=== PATIENT | female | born 1950 ===

== ENCOUNTER 2022-03-26 02:01 | Inpatient (IN) | payer MEDICARE, SELFPAY ==
[2022-03-26] VITALS (77 sets, daily range): BP systolic 84–135; BP diastolic 61–107; PULSE 62–129; RESP 11–46; TEMP 36.6–36.7; O2SAT 83–95
[2022-03-26] MEDS: dilTIAZem 125 MG in Normal Saline 100 ML 10 MG IV (05:57)
--- NOTE | 2022-03-26 06:17 | W.PM.HP.N ---
Date of service: 03/26/22 Time of Service: 06:17 Assessment and Plan Assessment and plan (1) Cardiogenic shock: Status: Acute Assessment and plan: patient meets criteria for shock, i.e. hypotensive unresponsive to fluids associated w/ acute end organ failure (she has EDDIE, hepatic insufficiency and global LV dysfunction); she has required norepinephrine drip after she was given total of 4 L of fluids prior to her arrival to us. She has not required intubation but has increased oxygen requirements. She is in acute CHF w/ pleural effusions and pulmonary edema. She does not want intubated or resuscitated in the event of cardiopulmonary arrest. In fact she does not want to stay in the hospital to receive appropriate treatment even if it means that she will likely . She has a fear of financial ruin if she remains hospitalized. I had a lengthy discussion w/ her about her conditions and what interventions we can provide for her. I am recommending that we attempt to diurese her, use low dose metoprolol to control her fast HR (goal is resting HR under 90, although she may need a higher HR to maintain her C.O which is low at 1.9 to 2.0). I am recommending dobutamine drip and amiodarone drip. The low dose metoprolol and amiodarone would help keep her out of PAF which will only worsen her LV output. I am recommending DAPT w/ aspirin and Plavix (which she did receive Plavix 600 mg and ASA 324 mg) and begin heparin drip. Ultimately she needs transferred to a tertiary care center for cardiac cath however at this point she refuses any transfer and she is refusing any further iv meds. She wants to be discharged home on oral meds. She says she needs time to process all this information and needs to discuss this w/ her (whom she did speak by telephone) and to talk w/ other family and colleagues to get their opinions. However, the bottom line is she is concerned that the hospital costs will financially ruin her and her . I [place] [facility] [place] [facility] transfer center prior to her refusing any transfer. [facility] are both at capacity. I did talk w/ Dr. Bloom, route inspector [place] [facility] who agreed w/ the above plan. He also added that digoxin could be tried for her PAF and CHF although he would try amiodarone first to keep her in SR. Critical care time spent interviewing and examining the patient, reviewing studies, discussing case with patient's nurse and consulting physicians was 90 minutes outside of POCUS exam (2) Ischemic cardiomyopathy: Status: Acute Assessment and plan: as above. While I did not get adquate biplane images for Daugherty biplane EF; her CO is low at 1.9 to 2.0. She has severely dilated LV w/ diffuse hypokinesis (apex and anterolateral wall were akinetic) w/ the exception of the basilar inferoseptal wall which was somewhat better but also hypokinetic. (3) Acute systolic congestive heart failure, NYHA class 4: Status: Acute (4) Mitral regurgitation: Status: Chronic Assessment and plan: sever MR as seen on color doppler POCUS (5) Paroxysmal atrial fibrillation: Status: Acute (6) Left bundle branch block: Status: Acute (7) Metabolic acidosis: Status: Acute (8) Hyperglycemia: Status: Acute Assessment and plan: monitor blood sugars; cover w/ SSI (9) Hepatic insufficiency: Status: Acute History of Present Illness History of Present Illness Chief Complaint: dyspnea Narrative: 71 yr old female, former smoker (quit 1999 after 12 yrs x 1/2 ppd), remote hx of hyperthyroidism as child, otherwise healthy until the past week when she developed dyspnea. She says that the dyspnea was most noticeable at night and worse w/ lying down. She denies any chest pain/tightness. No associated fever, chills, cough. She thought that this was just allergies until her dyspnea got so bad that she was having PND along w/ her orthopnea at which point she presented to the ER at [facility] where she was diagnosed w/ rapid atrial fibrillation. EKG taken at 8:11 pm there demonstrated afib w/ rate of 181 w/ LBBB. She was given diltiazem 15 mg bolus x 2 doses and started on diltiazem drip which was titrated to 15 mg/hr. Repeat EKG taken at 2:00 am continued to show afib w/ LBBB but rate down to 113 bpm (after she also received lopressor 2.5 mg). Labs were remarkable for troponin I of 74 pg/mL, glucose 186, BUN 32, creatinine 0.99, protein 5.3, albumin 3.0, calcium 8.0. CBC showed no anemia Hb14, WBC 10,000, platelets 127,00. [facility] ED provider, Kassy Weiss requested transfer as they did not have staffing to manage patient with her condition and needs for diltiazem drip. While at [facility] she received a total of 3 L of iv fluids d/t hypotension while on diltiazem drip and was put on norepinephrine drip after Dr. Weiss had intially called me and I had accepted the patient. She then got another liter of fluids enroute. NE drip was weaned down to 1 mcg/kg/minute and has been shut off. I ordered stat EKG on admission and this demonstrates ST elevation across the anterior leads w/LBBB but now she is in sinus tachycardia. We are dc her diltiazem drip. Review of Systems All systems reviewed & are unremarkable except as noted in HPI and below Cardiovascular Cardiovascular: Reports as per HPI Respiratory Respiratory: Reports as per HPI [facility] All Active Problems (Updated 03/26/22 @ 08:52 by Byron Warren MD) Cardiogenic shock (Acute) Hepatic insufficiency (Acute) Hyperglycemia (Acute) Metabolic acidosis (Acute) Left bundle branch block (Acute) Paroxysmal atrial fibrillation (Acute) Mitral regurgitation (Chronic) Acute systolic congestive heart failure, NYHA class 4 (Acute) Ischemic cardiomyopathy (Acute) Medical History Hyperthyroidism diagnosed w/ hyperthyroidism as child and treated for about one year; no workup or treatment as an adult Social History Smoking risk assessment performed?: No Exam Narrative Exam Narrative: Alert and oriented x4 HEENT: Atraumatic normocephalic, pupils equally round reactive to light and accommodation, extraocular motion intact, TMs intact, nares moist and patent without exudate or bleeding, oropharynx noninjected without exudate, teeth in fair repair Neck: Supple, nontender, without thyromegaly or lymphadenopathy, carotid pulses strong, regular; marked JVD to angle of her jaw Lungs: bibasilar rales w/ dullness to percussion over left base Heart: regular, tachycardic w/ 2/6 systolic murmur over apex Abdomen: Nondistended, normal bowel sounds, nontender to palpation or percussion, no organomegaly, no bruits, no palpable masses Genitalia and rectal exam: Deferred Breasts: Deferred Extremities: Normal range of motion with normal strength. No peripheral cyanosis, cool feet, palpable pedal pulses, 1+pedal and pretibial edema Neurologic: Cranial nerves grossly within normal limits. Normal strength and sensation over the face trunk and extremities. Results Labs Result diagrams: 03/26/22 05:35 03/26/22 05:35 Last Vital Signs Pulse 97 H 03/26/22 06:00 Resp 26 H 03/26/22 06:00 BP 102/79 03/26/22 06:00 Pulse Ox 91 L 03/26/22 05:50
[2022-03-26 06:30] LABS: Abs Immature Grans 0.05 10^3/uL (0.0-0.06); Absolute Basophil Count 0.01 10^3/uL (0.0-0.2); Absolute Lymphocyte Count 0.72 10^3/uL (1.2-3.4); Absolute Monocyte Count 0.36 10^3/uL (0.1-0.8); Absolute Neutrophil Count 8.94 10^3/uL (1.2-6.7); Basophils % 0.1; HCT 44.8 % (36.0-46.0); HGB 14.1 g/dL (11.2-15.7); Immature Grans % 0.5; Lymphocytes % 7.1; MCHC 31.5 % (32.0-36.0); MCV 102 fL (80-95); Monocytes % 3.6; Neutrophils % 88.7; Platelet Count 142 10^3/uL (130-400); RBC 4.41 10^6/uL (3.93-5.22); RDW 13.5 % (11.7-14.6); RDW-SD 50.9 fL; WBC 10.08 10^3/uL (4.4-10.8)
--- NOTE | 2022-03-26 06:30 | RT.EKG_ITS ---
APPROVED REPORT Exam: Resting ECG Reason for Exam: elevated troponin Patient Location: I HR:109 bpm ECG Measurements Heart Rate 109 AXIS MD 141 P 58 QRSd 82 QRS 14 QT 353 T 30 QTc 476 Conclusion Sinus tachycardia...rate> 99 Otherwise normal
[2022-03-26 06:38] LABS: INR 1.3 (0.9-1.1); Prothrombin Time 12.7 sec (9.3-11.0)
--- NOTE | 2022-03-26 06:45 | W.POCUS ---
Pocus Exam Limited Cardiac Exam DATE OF EXAM: 03/26/22 TIME OF EXAM: 06:45 PROVIDER THAT PERFORMED THE STUDY: Byron Warren REASON FOR EXAM: Congestive heart failure and Other (cardiogenic shock) indication: cardiogenic shock VISUALIZED STRUCTURES: Four Chambers, Left atrium, Left ventricle, LVOT, Right atrium, Right ventricle, Aortic valve, Mitral valve, Interventricular septum and IVC VIEW OBTAINED: Apical 4-Chamber, Parasternal long-axis, Parasternal short-axis and Subxiphoid PERTINENT FINDINGS/IMPRESSION: LV dysfunction, Plethoric IVC, RV dysfunction and Other (LV dilatation) Dilated LV with akinetic anterolateral, anterior wall, apical wall, mid and distal anteroseptal wall, hypokinetic inferior and inferolateral begum; RV is hyokinetic. Moderate to severe mitral regurgitation is seen along with dilated left atrium. SVC is plethoric and with less than 50% inspiratory collapsability. Estimated RA pressure 15 cm. Large left pleural effusion is seen. No pericardial effusion. LVEF was not calculated as a Daugherty's biplane ejection fraction was not performed. However estimated LVEF is very low at less than 20%. ; no IVC inspiratory collapsability and No pericardial effusion Exam complete
[2022-03-26 06:52] LABS: ALT 208 U/L (14-59); AST 158 U/L (15-37); Albumin 2.7 g/dL (3.4-5.0); Alkaline Phosphatase 106 U/L (46-116); Anion Gap 14.9 mmol/L (3-11); BUN 33 mg/dL (7-18); Bilirubin, Total 2.2 mg/dL (0.2-1.0); CO2 17.1 mmol/L (21.0-32.0); CREATININE 1.1 mg/dL (0.55-1.02); Calcium 6.7 mg/dL (8.5-10.1); Calculated LDL 97 mg/dL (<100); Chloride 107 mmol/L (98-107); Cholesterol 150 mg/dL (<200); Glucose 300 mg/dL (74-106); HDL Cholesterol 34 mg/dL (40-60); Sodium 139 mmol/L (136-145); TSH 2.04 uIU/mL (0.36-3.74); Total Protein 5.5 g/dL (6.4-8.2); Triglyceride 96 mg/dL (<150)
[2022-03-26 06:53] LABS: Troponin I 684 ng/L (<or=60)
[2022-03-26 06:54] LABS: PTT Activated 24.5 sec (21.0-27.5)
[2022-03-26 06:57] LABS: Lab Add On Test DONE
[2022-03-26 07:19] LABS: NT-proBNP 16582 pg/mL (<300)
[2022-03-26 07:30] LABS: Hemoglobin A1C 6.5 % (<5.7)
[2022-03-26] MEDS: Clopidogrel 300 MG TAB 600 MG PO (07:47)
[2022-03-26] MEDS: Aspirin 81 MG CHEW 324 MG CH (07:47)
[2022-03-26 08:02] LABS: Lab Add On Test DONE
[2022-03-26 08:32] LABS: Creatine Kinase 113 U/L (26-192); Magnesium 1.9 mg/dL (1.8-2.4)
--- NOTE | 2022-03-26 08:52 | NUR.NOTE ---
This automatic typewriter inspector made patient aware of plan of care including likelihood of transfer to tertiary facility, administration of dobutamine, heparin and amiodarone in addition to further lab work and x rays. Patient made aware of imminence of clinical situation including the risk of if interventions were halted. patient acknowledged risks but has asked to pause clinical intervention and make decisions at a later date. Needs to confer with friends and colleagues before making any further decisions.
--- NOTE | 2022-03-26 09:30 | PDOC.CMIN ---
- If Service Date Differs Date of service: 03/26/22 Time of Service: 09:30 Care Management Initial Assess REASON FOR HOSPITALIZATION:: cardoiogenic shock PAST MEDICAL HISTORY/PAST SURGICAL HISTORY:: All Active Problems (Updated 03/26/22 @ 08:52 by Byron Warren MD). Cardiogenic shock (Acute). Hepatic insufficiency (Acute). Hyperglycemia (Acute). Metabolic acidosis (Acute). Left bundle branch block (Acute). Paroxysmal atrial fibrillation (Acute). Mitral regurgitation (Chronic). Acute systolic congestive heart failure, NYHA class 4 (Acute). Ischemic cardiomyopathy (Acute). Medical History . Hyperthyroidism. diagnosed w/ hyperthyroidism as child and treated for about one year; no workup or treatment as an adult PREVIOUS FUNCTIONAL STATUS/SOCIAL/FAMILY SUPPORTS:: Ashly lives in [place], [place] with her husbabnd Hector. They have no children. 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 CURRENT FUNCTIONAL STATUS:: Ashly was sitting up in bed when CM met with her. She was smiling and pleasant and stated that she is feeling great. CM noted that she is in the ICU and according to the doctors, quite ill. She acknowledgfed that she has been told that but maintained that she does not feel ill. Ashly informed CM that she is concerned about the cost of care. RAYNA explained that every hospital has a Patient Financial Assistance program that will help to defray any expenses not covered by insurance. CM offered to help Ashly complete the application for [facility]'s program today. She has requested to be discharged even though she is critically ill. She is also refusing IV medications. Ashly informed CM that she wants to discuss things with her before receiving any additional care or agreeing to transfer. She stated: I have had a good life, one that I have enjoyed. I want to continue to live and enjoy life but not if I have no money to do things.Prior to discharge Ashly had a [facility] consultation with Iesha Batista MD and restated her decision to return home. ADVANCE DIRECTIVES:: COLST completed today identifying her desire to be DNR/DNI status Has patient been provided with info about the portal/API?: No Did the patient sign up for the portal?: No CODE STATUS:: DNR/DNI CODE STATUS COMMENT:: was a full code. Changed status to DNR/DNI this morning INSURANCE COVERAGE / FINANCIAL ISSUES:: Medicare CURRENT HOME/COMMUNITY SERVICES/EQUIPMENT:: discharging with new home health orders for nursing with a hospice evaluation planned for Monday PRIMARY CARE PHYSICIAN:: None. Has not sought medical care for over 30 years POTENTIAL DISCHARGE NEEDS:: transfer to tertiary care vs home on hospice PATIENT/FAMILY EDUCATION NEEDS:: Review of discharge instructions, limitations, medications, follow up plan, Ask Me Three TRANSPORTATION:: via private vehicle with PLAN:: Ashly will be discharged home with new home health orders for nursing through [facility] [facility]. CM contacted the agency today and faxed required information. Ashly will have a hospice evaluation on Monday. Ashly will also have home oxygen provided by [facility]. She had a small compressor delivered to [facility] prior to disdcharge. She will transport with her and follow up with Dr. Kulkarni, the hospice MD for that [facility].
--- NOTE | 2022-03-26 10:09 | W.PM.DS.N ---
Date of service: 03/26/22 Time of Service: 10:09 DS: Diagnosis Discharge Diagnosis (1) Cardiogenic shock: Status: Acute (2) Ischemic cardiomyopathy: Status: Acute (3) Acute systolic congestive heart failure, NYHA class 4: Status: Acute (4) Mitral regurgitation: Status: Chronic (5) Paroxysmal atrial fibrillation: Status: Acute (6) Left bundle branch block: Status: Acute (7) Metabolic acidosis: Status: Acute (8) Hyperglycemia: Status: Acute (9) Hepatic insufficiency: Status: Acute Asessment and Plan: vs shock liver Discharge Plan Disposition Patient Disposition: HOME W/HOME HEALTH SERVICE Condition: Critical Discharge Details Reason For Visit: AFIB w/ RVR Admit Date/Time: 03/26/22 02:01 Admit Provider: Byron Warren Attending Provider: Byron Warren Hospital Course Hospital Course: Ms Flynn is a 71 year old female with PMHx of tobacco abuse who was transferred to [facility] on 03/26/22 from [facility] ED where she had presented with progressive orthopnea, PND of probably several months duration, as the patient dates the onset of her symptoms to the peak of pine pollen. At [facility], she was found to be in rapid Afib, treated with cardizem IV. She also became hypotensive, receiving 4L of IVF as well as requiring initiation of norepinephrine drip. Her EKG was c/w a new diagnosis of LBBB (the patient had not seen an MD in 20 or 30 years; no prior EKGs available for comparison and onset of LBBB is unclear). She did have mildly elevated troponins as well. On arrival to [facility], she was still hypotensive, did not tolerate initial weaning of norepinephrine. She did convert to NSR, remaining in ST. We were able to turn off cardizem drip at that point. With great suspicion for a recent acute VA (possibly a STEMI), the patient was initiated on aspirin, plavix. Heparin gtt was also ordered, but the patient refused it. POCUS pictures of her heart showed dilated cardiomyopathy, severe hypokinesis of her LV and severe mitral regurgitation. Given this, it was felt that she was in cardiogenic shock. She also appears to be in acute heart failure. However, the patient refused initiation of dobutamine or amiodarone, transfer to a tertiary care facility or further workup. Her clearly and consistently stated wish was to go home. She met with Dr Batista in a palliative care consultation and was felt appropriate for home hospice. A referral to such was made. The patient agrees to take oral medications such as aspirin, plavix, and metoprolol which was initiated at a dose of 12.5 mg PO BID. She does require oxygen, desaturating to 88% at rest on room air. She was not interested in doing ambulatory pulse ox measurement, therefore we are prescribing her oxygen based on the O2 sat of 88% on RA at rest. The patient does not currently have a PCP and it is expected that Dr Kulkarni of [facility] would take over care. The patient did sign a COLST form indicating that she would like to be DNR, DNI, comfort measures only. Care for patient as well as completion of her discharge summary on day of discharge took 45 minutes. Home Meds and New Rx's Prescriptions: New clopidogrel 75 mg Tablet 75 mg PO DAILY Qty: 30 0RF aspirin 81 mg tablet,delayed release (DR/EC) 81 mg PO DAILY Qty: 30 0RF metoprolol tartrate 25 mg tablet 12.5 mg PO BID Qty: 30 0RF Discharge Instructions Instructions: Heart Attack (DC), Heart Failure (DC), A-fib (Atrial Fibrillation) (DC), Dilated Cardiomyopathy (DC), Using Oxygen at Home (DC), Low-Sodium Diet (DC), Hypoxia (ED), Hypoxia (GEN) Additional Instructions: You are being discharged home with oxygen. You are being referred to Home Hospice. Referrals: Esther Kulkarni [ NON-[facility] STAFF PHYSICIAN] - (Patient is being referred to home hospice) Activity:: Activity as Tolerated Equipment/Supplies:: Oxygen (L/min Below) Diet:: Low Sodium Discharge Orders Discharge Orders: Discharge Order (Routine); Ordered 03/26/22 Ordered By: Monica Jacinto DS: Summary Time Spent with Patient providing and/or coordinating discharge services: Greater than 30 minutes Status at Discharge Functional status at discharge: wheelchair bound Overall status at discharge: patient is not back to baseline Mental Status: mental status grossly normal Speech and Movement: speech and movement normal Mood: congruent mood Affect: normal affect Quality: AMI Clinical Trial Participant: No Contraindications to PCI Procedure: Drug declined by patient - patient beliefs Contraindication for No Fibrinolytic Therapy: Drug declined by patient - patient beliefs Contraindication for Statin: Treatment not indicated (going home on hospice) Exam Narrative Exam Narrative: General: very pleasant cachectic female who is sitting up at almost a 90 degree angle, on 2L of O2 byNC, no dyspnea/tachypnea/cyanosis talking to me HEENT: EOMI, MMM, + JVD Heart: irregularly irregular rhythm, + SHAHID Lungs: crackles at B bases, R>L Abdomen: soft, nontender, nondistended Extremities: 1+ pitting edema B Psych Mental Status: mental status grossly normal Speech and Movement: speech and movement normal Mood: congruent mood Affect: normal affect DS: Data Vitals/I&O Vitals and I&O: Vital Signs Temperature 36.6 C 03/26/22 08:37 Temperature Source Temporal Artery Scan 03/26/22 06:11 Pulse 87 03/26/22 06:47 Pulse 96 H 03/26/22 06:47 Respiratory Rate 23 03/26/22 08:37 Respiratory Effort 03/26/22 08:37 Respiratory Depth Normal 03/26/22 08:37 Respiratory Pattern Normal 03/26/22 08:37 Blood Pressure 95/70 L 03/26/22 08:37 Blood Pressure Mean 78 03/26/22 08:37 Pulse Oximetry 94 03/26/22 08:37 Oxygen Delivery Method Nasal Cannula 03/26/22 08:37 Oxygen Flow Rate 3 03/26/22 08:37 Pain Level 0 03/26/22 08:37 Intake & Output 03/25/22 03/25/22 03/26/22 11:59 23:59 11:59 Weight 53 kg Data Completed and Pending Labs on day of discharge: Labs from last 24 hours 03/26/22 03/26/22 03/26/22 Unknown 12:30 09:00 WBC RBC Hgb Hct MCV MCH MCHC RDW Plt Count MPV Immature Gran % Neutrophils % Lymphocytes % Monocytes % Eosinophils % Basophils % Nucleated RBC % Absolute Neutrophils Absolute Lymphocytes Absolute Monocytes Absolute Eosinophils Absolute Basophils PT INR APTT VBG Lactate Sodium Pending Potassium Pending Chloride Pending Carbon Dioxide Pending Anion Gap Pending BUN Pending Creatinine Pending Estimated GFR/1.73 m2 Pending Glucose Pending Hemoglobin A1c Calcium Pending Magnesium Total Bilirubin AST ALT Alkaline Phosphatase Creatine Kinase Troponin I Pending NT-Pro-B Natriuret Pep Total Protein Albumin Triglycerides Total Cholesterol LDL Cholesterol, Calc HDL Cholesterol TSH Add-On Test Request Pending 03/26/22 03/26/22 03/26/22 09:00 09:00 05:35 WBC RBC Hgb Hct MCV MCH MCHC RDW Plt Count MPV Immature Gran % Neutrophils % Lymphocytes % Monocytes % Eosinophils % Basophils % Nucleated RBC % Absolute Neutrophils Absolute Lymphocytes Absolute Monocytes Absolute Eosinophils Absolute Basophils PT INR APTT VBG Lactate Pending Sodium Potassium Chloride Carbon Dioxide Anion Gap BUN Creatinine Estimated GFR/1.73 m2 Glucose Hemoglobin A1c Calcium Magnesium 1.9 Total Bilirubin AST ALT Alkaline Phosphatase Creatine Kinase 113 Troponin I Pending NT-Pro-B Natriuret Pep Total Protein Albumin Triglycerides Total Cholesterol LDL Cholesterol, Calc HDL Cholesterol TSH Add-On Test Request 03/26/22 03/26/22 03/26/22 05:35 05:35 05:35 WBC RBC Hgb Hct MCV MCH MCHC RDW Plt Count MPV Immature Gran % Neutrophils % Lymphocytes % Monocytes % Eosinophils % Basophils % Nucleated RBC % Absolute Neutrophils Absolute Lymphocytes Absolute Monocytes Absolute Eosinophils Absolute Basophils PT INR APTT VBG Lactate Sodium Potassium Chloride Carbon Dioxide Anion Gap BUN Creatinine Estimated GFR/1.73 m2 Glucose Hemoglobin A1c 6.5 H Calcium Magnesium Total Bilirubin AST ALT Alkaline Phosphatase Creatine Kinase Troponin I NT-Pro-B Natriuret Pep 99623 H Total Protein Albumin Triglycerides Total Cholesterol LDL Cholesterol, Calc HDL Cholesterol TSH Add-On Test Request DONE 03/26/22 03/26/22 03/26/22 05:35 05:35 05:35 WBC RBC Hgb Hct MCV MCH MCHC RDW Plt Count MPV Immature Gran % Neutrophils % Lymphocytes % Monocytes % Eosinophils % Basophils % Nucleated RBC % Absolute Neutrophils Absolute Lymphocytes Absolute Monocytes Absolute Eosinophils Absolute Basophils PT 12.7 H INR 1.3 H APTT 24.5 VBG Lactate Sodium Potassium Chloride Carbon Dioxide Anion Gap BUN Creatinine Estimated GFR/1.73 m2 Glucose Hemoglobin A1c Calcium Magnesium Total Bilirubin AST ALT Alkaline Phosphatase Creatine Kinase Troponin I NT-Pro-B Natriuret Pep Total Protein Albumin Triglycerides Total Cholesterol LDL Cholesterol, Calc HDL Cholesterol TSH Add-On Test Request DONE 03/26/22 03/26/22 05:35 05:35 WBC 10.08 RBC 4.41 Hgb 14.1 Hct 44.8 MCV 102 H MCH 32.0 MCHC 31.5 L RDW 13.5 Plt Count 142 MPV Immature Gran % 0.5 Neutrophils % 88.7 Lymphocytes % 7.1 Monocytes % 3.6 Eosinophils % 0.0 Basophils % 0.1 Nucleated RBC % 0.0 Absolute Neutrophils 8.94 H Absolute Lymphocytes 0.72 L Absolute Monocytes 0.36 Absolute Eosinophils 0.00 Absolute Basophils 0.01 PT INR APTT VBG Lactate Sodium 139 Potassium 4.0 Chloride 107 Carbon Dioxide 17.1 L Anion Gap 14.9 H BUN 33 H Creatinine 1.1 H Estimated GFR/1.73 m2 49.10 Glucose 300 H Hemoglobin A1c Calcium 6.7 L Magnesium Total Bilirubin 2.2 H AST 158 H ALT 208 H Alkaline Phosphatase 106 Creatine Kinase Troponin I 684 H* NT-Pro-B Natriuret Pep Total Protein 5.5 L Albumin 2.7 L Triglycerides 96 Total Cholesterol 150 LDL Cholesterol, Calc 97 HDL Cholesterol 34 L TSH 2.04 Add-On Test Request PFSH All Active Problems (Updated 03/26/22 @ 12:35 by Monica Jacinto MD) Hypoxia (Acute) PND (paroxysmal nocturnal dyspnea) (Acute) Tachycardia (Acute) Encounter for hospice care discussion (Acute) History of smoking 10-25 pack years (Acute) quit age 51 Underweight (Acute) 5'10, 110 lbs bmi of 15.8 Oxygen dependent (Acute) DNI (do not intubate) (Acute) DNR (do not resuscitate) (Acute) POLST (Physician Orders for Life-Sustaining Treatment) (Acute) Health care directive on file (Acute) Counseling regarding advance directives and goals of care (Acute) Cardiogenic shock (Acute) Hepatic insufficiency (Acute) Hyperglycemia (Acute) Metabolic acidosis (Acute) Left bundle branch block (Acute) Paroxysmal atrial fibrillation (Acute) Mitral regurgitation (Chronic) Acute systolic congestive heart failure, NYHA class 4 (Acute) Ischemic cardiomyopathy (Acute) Medical History Hyperthyroidism diagnosed w/ hyperthyroidism as child and treated for about one year; no workup or treatment as an adult Family History (Updated 03/26/22 @ 11:08 by Iesha Batista MD) Mother , age 75 from stroke Stroke Sister Family estrangement Father , age 89 from heart disease Heart disease Social History (Updated 03/26/22 @ 11:11 by Iesha Batista MD) Smoking/Tobacco Use Status: Former Tobacco Use Tobacco: How many years used: 25 Smoking risk assessment performed?: Yes Alcohol Intake: current Drug use: Never Substance use type: does not use Caregiver/Support person: Yes Household members: spouse Housing: condominium Number of Children: 0 Communication Needs: Corrective Lenses Education Level: college Details: dental hygienist Do you need help understanding health information?: Rarely current occupation: retired dental hygienist Pets and animals: No (had cats in past) Do you think of yourself as: straight/heterosexual Current gender identity: female What is your relationship status?: How often do you talk on the phone with friends or family?: never How often do you get together with friends or relatives?: never Panel score (0-1 are the most socially isolated patients): 1 What type of physical activity do you participate in: none and additional Details: does housework, nothing vigorous, gets winded walking up stairs Duration: < 15 minutes/day Agree to transfusion: No Seatbelt use: always Working smoke detector in home: Yes Fire extinguisher in home: Yes Do you feel safe at home: Yes Do you feel safe in your relationship?: Yes Additional Social history: She and Hector are happily , close. Ashly does not socialize outside her marriage. Loves to knit. Loves quiet and wintertime.
--- NOTE | 2022-03-26 10:10 | PDOC.HHF2F_ITS ---
Home Health Certification Home Health Certification: 1. Encounter Date and Reason I certify that Ashly Flynn was seen by Monica Jacinto on 03/26/22 and that I had a [id number] encounter with this patient that meets the physician face to face encounter requirements. 2. Clinical Findings Supporting Skilled Need and Homebound Status I certify that home health services are medically necessary, include either intermittent long-term and/or physical/speech therapy, and that this patient is homebound in that absences from the home require considerable and taxing effort and are infrequent or of short duration, or are attributable to the need to receive medical care. [X] (a) Attached documentation from encounter provides clinical findings supporting skilled need and homebound status (including what assistance patient requires to leave the home). The encounter with the patient was in whole, or in part, for the following medical condition, which is the primary reason for home health care: AFIB w/ RVR Residential: new diagnosis of CHF, Afib, cardiogenic shock; evaluate for home hospice as the patient is refusing intervention and is interested in home hospice. Homebound: Unable to leave home without assistance 3. Certification and Authentication I certify that I composed the above information based on my clinical judgement relating to this patient's medical condition and, if applicable, clinical find ings communicated to me by the NPP or inpatient physician who performed the Home Health Referral. All further orders will be obtained through ___Dr Kulkarni (hospice biomedical engineering professor; patient does not have a community based PCP)
[2022-03-26] MEDS: Metoprolol 12.5 MG TAB PO (10:18)
--- NOTE | 2022-03-26 10:38 | W.PALLCONSUL ---
Date of service: 03/26/22 Time of Service: 09:00 History of Present Illness History of Present Illness Chief Complaint: dyspnea, cardiomyopathy, goals of care Narrative: I saw Ashly in the ICU after being consulted by Dr Jacinto to address her goals of care. She was evaluated at [facility] last night, and per her , Hector, was in the ER there for 5 or 6 hours before being transferred to [facility] for cardiac care. Ashly has not seen a physician in decades. She has never been hospitalized until this admission. She has no PCP in [place], where she has lived since she retired from [employer] in 2012. She was a dental hygienist for 30 years. She is medically literate. She was not on any medications prior to this admission. She is willing to take some minimal amount of medications at home. She feels that wearing oxygen has also improved her symptoms. She's willing to wear oxygen at home. She and her Hector have no children. They have been for 40 years +/-. They have vacationed in [place] for decades. About 15 years ago, they bought their condo in [place]. THey moved to [place] foster care social worker in 2012. Ashly noticed that she was short of breath and coughing regularly starting about December of 2021. She cannot lie flat. She times the onset of her symptoms to the heavy pine pollen of 2021; she thought she had allergies. She never has chest pain. She hasn't noticed a dramatic decrease in her stamina/physical abilities, but her reports that she now struggles to walk up a flight of stairs. She took her oxygen off for part of my visit with her. Within 5 minutes, she dropped to 88% on RA at rest. She put her oxygen back on and felt significantly better. We were able to review and fill out two essential documents about her wishes: the COLST form and the health care agent form. She filled out her choice of health care agent form, listing her Hector as her agent and no one else as back up or to be notified in case of illness. SHe has one sister, 4 years older, with whom she is not in touch. She is a minimalist re: health care procedures. She would like to go on hospice, in order to remain home and have her symptoms addressed. Per Dr Jacinto, Dr Warren, the admitting MD, did a bedside ECHO that showed significant dilated cardiomyopathy and a critically low EF. Ashly is not interested in any further cardiac work up or interventions. She is very clear that she wants to go home today. She understands that [facility] will not be able to admit her to hospice upon discharge. Consults Consult date: 03/26/22 Requesting physician: Monica Jacinto Assessment and Plan Assessment and plan (1) Ischemic cardiomyopathy: Status: Acute Assessment and plan: New finding on this exam. Not clear whether ischemic or virally induced, per my understanding. No known history of NC, no angina, no known HTN. Does have h.o smoking. No labs done for decades. No provider for decades. Not interested in finding out more about the condition of her heart. (2) Cardiogenic shock: Status: Acute Assessment and plan: Has resolved at time of my visit. Not in any extremis. (3) Counseling regarding advance directives and goals of care: Status: Acute Assessment and plan: 75+ minute discussion re: wishes, goals. Filled out COLST and health care agent form. She is a minimalist. She will take medications that make her feel better. Also willing to take asa and plavix. Does not want f/u with cardiology or f/u ECHO. (4) Paroxysmal atrial fibrillation: Status: Acute Assessment and plan: Discussed anticoagulation. She doesn't want to buy a DOAC. (No insurance to pay for med). She doesn't want INR testing for coumadin. She will take asa and plavix only. FOr rate control, she will take a beta coco. thinks her heart rate has been high for a while, incidentally. (5) Left bundle branch block: Status: Acute Assessment and plan: Found on this admit. Possibly due to earlier CAD event. Supportive as ischemia as part of her heart disease. (6) Health care directive on file: Status: Acute Assessment and plan: Hector, her , is agent. (7) DNI (do not intubate): Status: Acute Assessment and plan: Very clear about this. Did not hesitate or equivocate. Will accept oxygen, nothing else. Not interested in returning to the hospital. Doesn't want BIPAP or CPAP at this time. (8) DNR (do not resuscitate): Status: Acute (9) POLST (Physician Orders for Life-Sustaining Treatment): Status: Acute Assessment and plan: Done. Signed today. COpies to [facility], [facility]. Original to patient. (10) Acute systolic congestive heart failure, NYHA class 4: Status: Acute Assessment and plan: Described general ups and downs of people with this diagnosis. SLower progression than cancer, but with constant decline. (11) Oxygen dependent: Status: Acute Assessment and plan: Dropped down to 88% at rest. RT to evaluate. Willing to go on hospice as soon as [facility] can admit. (12) Underweight: Status: Acute Assessment and plan: Life long, by report. (13) History of smoking 10-25 pack years: Status: Acute (14) Encounter for hospice care discussion: Status: Acute Assessment and plan: Hospice fits her goals of care. She has no PCP; Dr Perez would be her PCP once she is enrolled in hospice. Advised that her heart MIGHT get better, though unlikely. If it does, advised she can come off hospice without penalty. (15) PND (paroxysmal nocturnal dyspnea): Status: Acute Assessment and plan: Cannot lie flat at night. Would benefit from hospital bed at home. (16) Tachycardia: Status: Acute Assessment and plan: HR between 100-110 at rest during my visit. Has distant h/o hyperthryoidism. unclear if reactived? Review of Systems Constitutional Constitutional: Reports difficulty sleeping, Reports fatigue, Reports lethargy and Reports weakness Eyes Eyes: Reports requires corrective lenses ENT Ears, Nose, Mouth, and Throat: Reports system reviewed and no additional complaints, except as documented Cardiovascular Cardiovascular: Denies chest pain, Reports rapid heart rate, Reports leg edema, Reports palpitations, Reports dyspnea, Reports dyspnea on exertion, Reports orthopnea and Reports paroxysmal nocturnal dyspnea Respiratory Respiratory: Reports dyspnea and Reports dyspnea on exertion Gastrointestinal Gastrointestinal: Reports constipation Comments: has always been underweight; she reports she is 5'10 and weighs 110 lbs. Musculoskeletal Musculoskeletal: Reports atrophy, Reports loss of height and Reports muscle weakness Neurologic Neurologic: Denies confusion, Denies memory loss and Reports weakness Psychiatric Psychiatric: Denies change in appetite, Denies confusion and Denies memory loss Endocrine Endocrine: Reports fatigue and Reports palpitations Hematologic/Lymphatic Hematologic/Lymphatic: Reports easy bruising PFSH All Active Problems (Updated 03/26/22 @ 11:07 by Iesha Batista MD) PND (paroxysmal nocturnal dyspnea) (Acute) Tachycardia (Acute) Encounter for hospice care discussion (Acute) History of smoking 10-25 pack years (Acute) quit age 51 Underweight (Acute) 5'10, 110 lbs bmi of 15.8 Oxygen dependent (Acute) DNI (do not intubate) (Acute) DNR (do not resuscitate) (Acute) POLST (Physician Orders for Life-Sustaining Treatment) (Acute) Health care directive on file (Acute) Counseling regarding advance directives and goals of care (Acute) Cardiogenic shock (Acute) Hepatic insufficiency (Acute) Hyperglycemia (Acute) Metabolic acidosis (Acute) Left bundle branch block (Acute) Paroxysmal atrial fibrillation (Acute) Mitral regurgitation (Chronic) Acute systolic congestive heart failure, NYHA class 4 (Acute) Ischemic cardiomyopathy (Acute) Medical History Hyperthyroidism diagnosed w/ hyperthyroidism as child and treated for about one year; no workup or treatment as an adult Family History (Updated 03/26/22 @ 11:08 by Iesha Batista MD) Mother , age 75 from stroke Stroke Sister Family estrangement Father , age 89 from heart disease Heart disease Social History (Updated 03/26/22 @ 11:11 by Iesha Batista MD) Smoking/Tobacco Use Status: Former Tobacco Use Tobacco: How many years used: 25 Smoking risk assessment performed?: Yes Alcohol Intake: current Drug use: Never Substance use type: does not use Caregiver/Support person: Yes Household members: spouse Housing: condominium Number of Children: 0 Communication Needs: Corrective Lenses Education Level: college Details: dental hygienist Do you need help understanding health information?: Rarely current occupation: retired dental hygienist Pets and animals: No (had cats in past) Do you think of yourself as: straight/heterosexual Current gender identity: female What is your relationship status?: How often do you talk on the phone with friends or family?: never How often do you get together with friends or relatives?: never Panel score (0-1 are the most socially isolated patients): 1 What type of physical activity do you participate in: none and additional Details: does housework, nothing vigorous, gets winded walking up stairs Duration: < 15 minutes/day Agree to transfusion: No Seatbelt use: always Working smoke detector in home: Yes Fire extinguisher in home: Yes Do you feel safe at home: Yes Do you feel safe in your relationship?: Yes Additional Social history: She and Hector are happily , close. Ashly does not socialize outside her marriage. Loves to knit. Loves quiet and wintertime. Exam Narrative Exam Narrative: Alert and oriented x4 HEENT: Atraumatic normocephalic, pupils equally round reactive to light and accommodation, extraocular motion intact, TMs intact, nares moist and patent without exudate or bleeding, oropharynx noninjected without exudate, teeth in fair repair Neck: Supple, nontender, without thyromegaly or lymphadenopathy, carotid pulses strong, regular; marked JVD to angle of her jaw Lungs: bibasilar rales w/ dullness to percussion over left base Heart: regular, tachycardic w/ 2/6 systolic murmur over apex Abdomen: Nondistended, normal bowel sounds, nontender to palpation or percussion, no organomegaly, no bruits, no palpable masses Genitalia and rectal exam: Deferred Breasts: Deferred Extremities: Normal range of motion with normal strength. No peripheral cyanosis, cool feet, palpable pedal pulses, 1+pedal and pretibial edema Neurologic: Cranial nerves grossly within normal limits. Normal strength and sensation over the face trunk and extremities. Results Last Vital Signs Temp 97.9 F 03/26/22 08:37 Pulse 87 03/26/22 06:47 Resp 23 03/26/22 08:37 BP 95/70 L 03/26/22 08:37 Pulse Ox 94 03/26/22 08:37 Labs Result diagrams: 03/26/22 05:35 03/26/22 05:35 Labs: Laboratory Results - last 24 hr 03/26/22 03/26/22 03/26/22 05:35 05:35 05:35 WBC 10.08 RBC 4.41 Hgb 14.1 Hct 44.8 MCV 102 H MCH 32.0 MCHC 31.5 L RDW 13.5 Plt Count 142 MPV Immature Gran % 0.5 Neutrophils % 88.7 Lymphocytes % 7.1 Monocytes % 3.6 Eosinophils % 0.0 Basophils % 0.1 Nucleated RBC % 0.0 Absolute Neutrophils 8.94 H Absolute Lymphocytes 0.72 L Absolute Monocytes 0.36 Absolute Eosinophils 0.00 Absolute Basophils 0.01 PT 12.7 H INR 1.3 H APTT VBG Lactate Sodium 139 Potassium 4.0 Chloride 107 Carbon Dioxide 17.1 L Anion Gap 14.9 H BUN 33 H Creatinine 1.1 H Estimated GFR/1.73 m2 49.10 Glucose 300 H Hemoglobin A1c Calcium 6.7 L Magnesium Total Bilirubin 2.2 H AST 158 H ALT 208 H Alkaline Phosphatase 106 Creatine Kinase Troponin I 684 H* NT-Pro-B Natriuret Pep Total Protein 5.5 L Albumin 2.7 L Triglycerides 96 Total Cholesterol 150 LDL Cholesterol, Calc 97 HDL Cholesterol 34 L TSH 2.04 Add-On Test Request 03/26/22 03/26/22 03/26/22 05:35 05:35 05:35 WBC RBC Hgb Hct MCV MCH MCHC RDW Plt Count MPV Immature Gran % Neutrophils % Lymphocytes % Monocytes % Eosinophils % Basophils % Nucleated RBC % Absolute Neutrophils Absolute Lymphocytes Absolute Monocytes Absolute Eosinophils Absolute Basophils PT INR APTT 24.5 VBG Lactate Sodium Potassium Chloride Carbon Dioxide Anion Gap BUN Creatinine Estimated GFR/1.73 m2 Glucose Hemoglobin A1c Calcium Magnesium Total Bilirubin AST ALT Alkaline Phosphatase Creatine Kinase Troponin I NT-Pro-B Natriuret Pep 83904 H Total Protein Albumin Triglycerides Total Cholesterol LDL Cholesterol, Calc HDL Cholesterol TSH Add-On Test Request DONE 03/26/22 03/26/22 03/26/22 05:35 05:35 05:35 WBC RBC Hgb Hct MCV MCH MCHC RDW Plt Count MPV Immature Gran % Neutrophils % Lymphocytes % Monocytes % Eosinophils % Basophils % Nucleated RBC % Absolute Neutrophils Absolute Lymphocytes Absolute Monocytes Absolute Eosinophils Absolute Basophils PT INR APTT VBG Lactate Sodium Potassium Chloride Carbon Dioxide Anion Gap BUN Creatinine Estimated GFR/1.73 m2 Glucose Hemoglobin A1c 6.5 H Calcium Magnesium 1.9 Total Bilirubin AST ALT Alkaline Phosphatase Creatine Kinase 113 Troponin I NT-Pro-B Natriuret Pep Total Protein Albumin Triglycerides Total Cholesterol LDL Cholesterol, Calc HDL Cholesterol TSH Add-On Test Request DONE 03/26/22 03/26/22 03/26/22 09:00 09:00 09:00 WBC RBC Hgb Hct MCV MCH MCHC RDW Plt Count MPV Immature Gran % Neutrophils % Lymphocytes % Monocytes % Eosinophils % Basophils % Nucleated RBC % Absolute Neutrophils Absolute Lymphocytes Absolute Monocytes Absolute Eosinophils Absolute Basophils PT INR APTT VBG Lactate Cancelled Sodium Cancelled Potassium Cancelled Chloride Cancelled Carbon Dioxide Cancelled Anion Gap Cancelled BUN Cancelled Creatinine Cancelled Estimated GFR/1.73 m2 Cancelled Glucose Cancelled Hemoglobin A1c Calcium Cancelled Magnesium Total Bilirubin AST ALT Alkaline Phosphatase Creatine Kinase Troponin I Cancelled NT-Pro-B Natriuret Pep Total Protein Albumin Triglycerides Total Cholesterol LDL Cholesterol, Calc HDL Cholesterol TSH Add-On Test Request 03/26/22 12:30 WBC RBC Hgb Hct MCV MCH MCHC RDW Plt Count MPV Immature Gran % Neutrophils % Lymphocytes % Monocytes % Eosinophils % Basophils % Nucleated RBC % Absolute Neutrophils Absolute Lymphocytes Absolute Monocytes Absolute Eosinophils Absolute Basophils PT INR APTT VBG Lactate Sodium Potassium Chloride Carbon Dioxide Anion Gap BUN Creatinine Estimated GFR/1.73 m2 Glucose Hemoglobin A1c Calcium Magnesium Total Bilirubin AST ALT Alkaline Phosphatase Creatine Kinase Troponin I Cancelled NT-Pro-B Natriuret Pep Total Protein Albumin Triglycerides Total Cholesterol LDL Cholesterol, Calc HDL Cholesterol TSH Add-On Test Request
--- NOTE | 2022-03-26 10:44 | DSE_ITS ---
Date of service: 03/26/22 Time of Service: 10:44 DS: Diagnosis Discharge Diagnosis (1) Cardiogenic shock: Status: Acute (2) Ischemic cardiomyopathy: Status: Acute (3) Acute systolic congestive heart failure, NYHA class 4: Status: Acute (4) Mitral regurgitation: Status: Chronic (5) Paroxysmal atrial fibrillation: Status: Acute Asessment and Plan: with RVR (6) Left bundle branch block: Status: Acute (7) Metabolic acidosis: Status: Acute (8) Hyperglycemia: Status: Acute (9) Hepatic insufficiency: Status: Acute (10) Hypoxia: Status: Acute Discharge Plan Disposition Patient Disposition: HOME W/HOME HEALTH SERVICE Condition: Critical Discharge Details Reason For Visit: AFIB w/ RVR Admit Date/Time: 03/26/22 02:01 Admit Provider: Byron Warren Attending Provider: Byron Warren Home Meds and New Rx's Prescriptions: New clopidogrel 75 mg Tablet 75 mg PO DAILY Qty: 30 0RF aspirin 81 mg tablet,delayed release (DR/EC) 81 mg PO DAILY Qty: 30 0RF metoprolol tartrate 25 mg tablet 12.5 mg PO BID Qty: 30 0RF Discharge Instructions Instructions: Heart Attack (DC), Heart Failure (DC), A-fib (Atrial Fibrillation) (DC), Dilated Cardiomyopathy (DC), Using Oxygen at Home (DC), Low- Sodium Diet (DC), Hypoxia (ED), Hypoxia (GEN) Additional Instructions: You are being discharged home with oxygen. You are being referred to Home Hospice. Referrals: Esther Kulkarni [ NON-[facility] STAFF PHYSICIAN] - (Patient is being referred to home hospice) Activity:: Activity as Tolerated Equipment/Supplies:: Oxygen (L/min Below) Diet:: Low Sodium Discharge Orders Discharge Orders: Discharge Order (Routine); Ordered 03/26/22 Ordered By: Monica Jacinto DS: Data Vitals/I&O Vitals and I&O: Vital Signs Temperature 36.6 C 03/26/22 08:37 Temperature Source Temporal Artery Scan 03/26/22 06:11 Pulse 87 03/26/22 06:47 Pulse 96 H 03/26/22 06:47 Respiratory Rate 23 03/26/22 08:37 Respiratory Effort 03/26/22 08:37 Respiratory Depth Normal 03/26/22 08:37 Respiratory Pattern Normal 03/26/22 08:37 Blood Pressure 95/70 L 03/26/22 08:37 Blood Pressure Mean 78 03/26/22 08:37 Pulse Oximetry 94 03/26/22 08:37 Oxygen Delivery Method Nasal Cannula 03/26/22 08:37 Oxygen Flow Rate 3 03/26/22 08:37 Pain Level 0 03/26/22 08:37 Intake & Output 03/25/22 03/25/22 03/26/22 11:59 23:59 11:59 Weight 53 kg Data Completed and Pending Labs on day of discharge: Labs from last 24 hours 03/26/22 03/26/22 03/26/22 Unknown 12:30 09:00 WBC RBC Hgb Hct MCV MCH MCHC RDW Plt Count MPV Immature Gran % Neutrophils % Lymphocytes % Monocytes % Eosinophils % Basophils % Nucleated RBC % Absolute Neutrophils Absolute Lymphocytes Absolute Monocytes Absolute Eosinophils Absolute Basophils PT INR APTT VBG Lactate Sodium Cancelled Potassium Cancelled Chloride Cancelled Carbon Dioxide Cancelled Anion Gap Cancelled BUN Cancelled Creatinine Cancelled Estimated GFR/1.73 m2 Cancelled Glucose Cancelled Hemoglobin A1c Calcium Cancelled Magnesium Total Bilirubin AST ALT Alkaline Phosphatase Creatine Kinase Troponin I Cancelled NT-Pro-B Natriuret Pep Total Protein Albumin Triglycerides Total Cholesterol LDL Cholesterol, Calc HDL Cholesterol TSH Add-On Test Request Pending 03/26/22 03/26/22 03/26/22 09:00 09:00 05:35 WBC RBC Hgb Hct MCV MCH MCHC RDW Plt Count MPV Immature Gran % Neutrophils % Lymphocytes % Monocytes % Eosinophils % Basophils % Nucleated RBC % Absolute Neutrophils Absolute Lymphocytes Absolute Monocytes Absolute Eosinophils Absolute Basophils PT INR APTT VBG Lactate Cancelled Sodium Potassium Chloride Carbon Dioxide Anion Gap BUN Creatinine Estimated GFR/1.73 m2 Glucose Hemoglobin A1c Calcium Magnesium 1.9 Total Bilirubin AST ALT Alkaline Phosphatase Creatine Kinase 113 Troponin I Cancelled NT-Pro-B Natriuret Pep Total Protein Albumin Triglycerides Total Cholesterol LDL Cholesterol, Calc HDL Cholesterol TSH Add-On Test Request 03/26/22 03/26/22 03/26/22 05:35 05:35 05:35 WBC RBC Hgb Hct MCV MCH MCHC RDW Plt Count MPV Immature Gran % Neutrophils % Lymphocytes % Monocytes % Eosinophils % Basophils % Nucleated RBC % Absolute Neutrophils Absolute Lymphocytes Absolute Monocytes Absolute Eosinophils Absolute Basophils PT INR APTT VBG Lactate Sodium Potassium Chloride Carbon Dioxide Anion Gap BUN Creatinine Estimated GFR/1.73 m2 Glucose Hemoglobin A1c 6.5 H Calcium Magnesium Total Bilirubin AST ALT Alkaline Phosphatase Creatine Kinase Troponin I NT-Pro-B Natriuret Pep 39518 H Total Protein Albumin Triglycerides Total Cholesterol LDL Cholesterol, Calc HDL Cholesterol TSH Add-On Test Request DONE 03/26/22 03/26/22 03/26/22 05:35 05:35 05:35 WBC RBC Hgb Hct MCV MCH MCHC RDW Plt Count MPV Immature Gran % Neutrophils % Lymphocytes % Monocytes % Eosinophils % Basophils % Nucleated RBC % Absolute Neutrophils Absolute Lymphocytes Absolute Monocytes Absolute Eosinophils Absolute Basophils PT 12.7 H INR 1.3 H APTT 24.5 VBG Lactate Sodium Potassium Chloride Carbon Dioxide Anion Gap BUN Creatinine Estimated GFR/1.73 m2 Glucose Hemoglobin A1c Calcium Magnesium Total Bilirubin AST ALT Alkaline Phosphatase Creatine Kinase Troponin I NT-Pro-B Natriuret Pep Total Protein Albumin Triglycerides Total Cholesterol LDL Cholesterol, Calc HDL Cholesterol TSH Add-On Test Request DONE 03/26/22 03/26/22 05:35 05:35 WBC 10.08 RBC 4.41 Hgb 14.1 Hct 44.8 MCV 102 H MCH 32.0 MCHC 31.5 L RDW 13.5 Plt Count 142 MPV Immature Gran % 0.5 Neutrophils % 88.7 Lymphocytes % 7.1 Monocytes % 3.6 Eosinophils % 0.0 Basophils % 0.1 Nucleated RBC % 0.0 Absolute Neutrophils 8.94 H Absolute Lymphocytes 0.72 L Absolute Monocytes 0.36 Absolute Eosinophils 0.00 Absolute Basophils 0.01 PT INR APTT VBG Lactate Sodium 139 Potassium 4.0 Chloride 107 Carbon Dioxide 17.1 L Anion Gap 14.9 H BUN 33 H Creatinine 1.1 H Estimated GFR/1.73 m2 49.10 Glucose 300 H Hemoglobin A1c Calcium 6.7 L Magnesium Total Bilirubin 2.2 H AST 158 H ALT 208 H Alkaline Phosphatase 106 Creatine Kinase Troponin I 684 H* NT-Pro-B Natriuret Pep Total Protein 5.5 L Albumin 2.7 L Triglycerides 96 Total Cholesterol 150 LDL Cholesterol, Calc 97 HDL Cholesterol 34 L TSH 2.04 Add-On Test Request PFSH All Active Problems (Updated 03/26/22 @ 12:35 by Monica Jacinto MD) Hypoxia (Acute) PND (paroxysmal nocturnal dyspnea) (Acute) Tachycardia (Acute) Encounter for hospice care discussion (Acute) History of smoking 10-25 pack years (Acute) quit age 51 Underweight (Acute) 5'10, 110 lbs bmi of 15.8 Oxygen dependent (Acute) DNI (do not intubate) (Acute) DNR (do not resuscitate) (Acute) POLST (Physician Orders for Life-Sustaining Treatment) (Acute) Health care directive on file (Acute) Counseling regarding advance directives and goals of care (Acute) Cardiogenic shock (Acute) Hepatic insufficiency (Acute) Hyperglycemia (Acute) Metabolic acidosis (Acute) Left bundle branch block (Acute) Paroxysmal atrial fibrillation (Acute) Mitral regurgitation (Chronic) Acute systolic congestive heart failure, NYHA class 4 (Acute) Ischemic cardiomyopathy (Acute) Medical History Hyperthyroidism diagnosed w/ hyperthyroidism as child and treated for about one year; no workup or treatment as an adult Family History (Updated 03/26/22 @ 11:08 by Iesha Batista MD) Mother , age 75 from stroke Stroke Sister Family estrangement Father , age 89 from heart disease Heart disease Social History (Updated 03/26/22 @ 11:11 by Iesha Batista MD) Smoking/Tobacco Use Status: Former Tobacco Use Tobacco: How many years used: 25 Smoking risk assessment performed?: Yes Alcohol Intake: current Drug use: Never Substance use type: does not use Caregiver/Support person: Yes Household members: spouse Housing: condominium Number of Children: 0 Communication Needs: Corrective Lenses Education Level: college Details: dental hygienist Do you need help understanding health information?: Rarely current occupation: retired dental hygienist Pets and animals: No (had cats in past) Do you think of yourself as: straight/heterosexual Current gender identity: female What is your relationship status?: How often do you talk on the phone with friends or family?: never How often do you get together with friends or relatives?: never Panel score (0-1 are the most socially isolated patients): 1 What type of physical activity do you participate in: none and additional Details: does housework, nothing vigorous, gets winded walking up stairs Duration: < 15 minutes/day Agree to transfusion: No Seatbelt use: always Working smoke detector in home: Yes Fire extinguisher in home: Yes Do you feel safe at home: Yes Do you feel safe in your relationship?: Yes Additional Social history: She and Hector are happily , close. Ashly does not socialize outside her marriage. Loves to knit. Loves quiet and wintertime.
--- NOTE | 2022-03-26 16:19 | PDOC.CMDIS ---
- If Service Date Differs Date of service: 03/26/22 Time of Service: 16:19 LACE Index Scoring Tool - Questions: Length of Stay (in days): 1 Acuity (Admit via E.D.?): No Comorbidities: Previous M.I., Diabetes w/o Complication E.D. Visits: 1 - Answers: Total Score: 4 Risk of Readmission: Low Risk Care Management Discharge Reason for Hospitalization: cardoiogenic shock Discharge Plan: Ashly will be discharged home with new home health orders for nursing through [facility]. CM contacted the agency today and faxed required information. Ashly will have a hospice evaluation on Monday. Ashly will also have home oxygen provided by [facility]. She had a small compressor delivered to [facility] prior to disdcharge. She will transport with her and follow up with Dr. Kulkarni, the hospice MD for that [facility]. Patient/Family Education Needs: Review of discharge instructions, limitations, risks, medications, follow up plan, Ask Me Three Services Needed at Discharge: Home Health Care Services
== END 2022-03-26 15:25 | disposition home health service (06) | DRG 441 ==
PROVIDERS: Internal Medicine; Admitting Provider Internal Medicine; Visit Provider Internal Medicine
DX: K72.00 Acute and subacute hepatic failure without coma (principal); I50.21 Acute systolic (congestive) heart failure; R57.0 Cardiogenic shock; N17.9 Acute kidney failure, unspecified; E87.2 Acidosis; Z68.1 Body mass index [BMI] 19.9 or less, adult; I25.5 Ischemic cardiomyopathy; I34.0 Nonrheumatic mitral (valve) insufficiency; I48.0 Paroxysmal atrial fibrillation; I44.7 Left bundle-branch block, unspecified; R73.9 Hyperglycemia, unspecified; Z66 Do not resuscitate; R63.6 Underweight; Z51.5 Encounter for palliative care; Z87.891 Personal history of nicotine dependence; Z71.89 Other specified counseling
CPT/HCPCS: 36415; 80048; 80053; 80061; 82550; 93308; 94618; 83036; 83605; 83735; 83880; 84443; 84484; 85025; 85610; 85730; 99239; 99291; J3490